=== PATIENT | male | born 1990 | race Caucasian/White ===

== ENCOUNTER 2018-02-19 09:38 | Outpatient (CLI) | payer MEDICARE, MEDICAID, SELFPAY ==
[2018-02-19 10:28] LABS: HCT 49.4 % (40.0-50.0); Mean Corp. HGB Concentration 32.4 g/dL (32.0-36.0); Mean Corpuscular Hemoglobin 29.4 pg (27.0-33.0); Mean Corpuscular Volume 90.6 fL (80-95); Mean Platelet Volume 9.9 fL (8.0-11.0); Platelet Count 221 x1000/uL (130-400); RBC 5.45 m/cumm (4.50-6.00); RBC Distribution Width 13.3 % (11.8-14.1); White Blood Cell Count 4.66 k/cumm (4.4-10.8)
[2018-02-19 11:05] LABS: ALT 69 U/L (12-78); AST 32 U/L (15-37)
[2018-02-19 11:06] LABS: Cholesterol 133 mg/dL (50-200); Triglyceride 106 mg/dL (30-150)
== END 2018-02-19 09:58 ==
PROVIDERS: PCP Family Medicine; Visit Provider Dermatology
DX: L70.1 Acne conglobata (principal); Z79.899 Other long term (current) drug therapy
CPT/HCPCS: 36415; 85027; 82465; 84450; 84460; 84478

== ENCOUNTER 2019-04-01 08:41 | Outpatient (CLI) | payer MEDICARE, MEDICAID, SELFPAY ==
[2019-04-01 09:11] LABS: HGB 16.1 g/dL (13.5-17.5); Mean Corp. HGB Concentration 32.2 g/dL (32.0-36.0); Mean Corpuscular Hemoglobin 28.9 pg (27.0-33.0); Mean Corpuscular Volume 89.6 fL (80-95); Mean Platelet Volume 9.5 fL (8.0-11.0); Platelet Count 239 x1000/uL (130-400); RBC 5.58 m/cumm (4.50-6.00); RBC Distribution Width 13.5 % (11.8-14.1)
[2019-04-01 10:15] LABS: Anion Gap 6.5 mmol/L (3-11); BUN 14 mg/dL (7-18); CO2 31.5 mmol/L (21.0-32.0); CREATININE 1.01 mg/dL (0.70-1.30); Calcium 9.2 mg/dL (8.5-10.1); Chloride 108 mmol/L (98-107); Glucose 84 mg/dL (70-100); Potassium 4.4 mmol/L (3.5-5.1); Sodium 146 mmol/L (136-145)
[2019-04-01 10:20] LABS: Hemoglobin A1C 5.7 % (4.5-6.2)
== END 2019-04-01 09:01 ==
PROVIDERS: PCP Family Medicine; Visit Provider Psychiatry & Neurology Child & Adolescent Psychiatry
DX: F79 Unspecified intellectual disabilities (principal); I10 Essential (primary) hypertension; Z79.899 Other long term (current) drug therapy
CPT/HCPCS: 36415; 80048; 85027; 83036

== ENCOUNTER 2021-03-13 10:47 | Outpatient (CLI) | payer MEDICARE, MEDICAID, SELFPAY ==
[2021-03-13 12:45] LABS: Anion Gap 5.7 mmol/L (3-11); BUN 14 mg/dL (7-18); CO2 34.3 mmol/L (21.0-32.0); CREATININE 0.9 mg/dL (0.70-1.30); Calcium 9.3 mg/dL (8.5-10.1); Calculated LDL 59 mg/dL (<100); Chloride 105 mmol/L (98-107); Cholesterol 118 mg/dL (<200); Glucose 59 mg/dL (74-106); HDL Cholesterol 49 mg/dL (40-60); Potassium 4.1 mmol/L (3.5-5.1); Sodium 145 mmol/L (136-145); Triglyceride 51 mg/dL (<150)
[2021-03-13 13:02] LABS: Hemoglobin A1C 5.3 % (<5.7)
== END 2021-03-13 10:48 | disposition home or self-care (01) ==
LOC: LOS 10:48
PROVIDERS: PCP Nurse Practitioner; Visit Provider Nurse Practitioner
DX: E78.5 Hyperlipidemia, unspecified (principal); R73.03 Prediabetes; R63.1 Polydipsia
CPT/HCPCS: 36415; 80048; 80061; 83036

== ENCOUNTER → 2023-03-26 09:07 | Outpatient (BNVA) | payer MEDICARE, MEDICAID, SELFPAY | PROVIDERS: PCP Nurse Practitioner Family; Referring Provider Nurse Practitioner Family; Visit Provider Podiatrist | DX: B35.1 Tinea unguium (principal); L60.3 Nail dystrophy; M79.674 Pain in right toe(s); M79.675 Pain in left toe(s) | CPT/HCPCS: 11721 ==

== ENCOUNTER 2023-04-30 13:54 | Outpatient (REF) | payer MEDICARE, MEDICAID, SELFPAY ==
[2023-04-30 14:35] LABS: ALT 31 U/L (16-63); AST 15 U/L (15-37); Alkaline Phosphatase 101 U/L (46-116); BUN 13 mg/dL (7-18); CREATININE 0.9 mg/dL (0.70-1.30); Calcium 9.3 mg/dL (8.5-10.1); Calculated LDL 60 mg/dL (<100); Chloride 105 mmol/L (98-107); Cholesterol 117 mg/dL (<200); Glucose 74 mg/dL (74-106); HDL Cholesterol 50 mg/dL (40-60); Potassium 3.9 mmol/L (3.5-5.1); Sodium 144 mmol/L (136-145); Total Protein 7.3 g/dL (6.4-8.2); Triglyceride 35 mg/dL (<150)
== END 2023-04-30 13:55 | disposition home or self-care (01) ==
LOC: LBN 13:54
PROVIDERS: PCP Nurse Practitioner Family; Visit Provider Nurse Practitioner Family
DX: E78.5 Hyperlipidemia, unspecified (principal)
CPT/HCPCS: 80053; 80061

== ENCOUNTER → 2023-12-11 13:06 | Outpatient (BNVA) | payer MEDICARE, MEDICAID, SELFPAY | PROVIDERS: PCP Nurse Practitioner Family; Referring Provider Nurse Practitioner Family; Visit Provider Podiatrist | DX: L60.0 Ingrowing nail (principal); M79.671 Pain in right foot | CPT/HCPCS: 11750 ==

== ENCOUNTER → 2023-12-29 13:25 | Outpatient (BNVA) | payer MEDICARE, MEDICAID, SELFPAY | PROVIDERS: PCP Nurse Practitioner Family; Referring Provider Nurse Practitioner Family; Visit Provider Podiatrist | DX: L60.0 Ingrowing nail (principal); M79.671 Pain in right foot | CPT/HCPCS: 99213 ==

== ENCOUNTER 2024-10-05 02:45 | Outpatient (CLI) | payer MEDICARE, MEDICAID, SELFPAY ==
[2024-10-05 10:37] LABS: ALT 53 U/L (16-63); AST 29 U/L (15-37); Albumin 3.8 g/dL (3.4-5.0); Alkaline Phosphatase 113 U/L (46-116); Anion Gap 5.1 mmol/L (3-11); BUN 15 mg/dL (7-18); Bilirubin, Total 0.8 mg/dL (0.2-1.0); CO2 30.9 mmol/L (21.0-32.0); CREATININE 0.9 mg/dL (0.70-1.30); Calcium 9.1 mg/dL (8.5-10.1); Calculated LDL 57 mg/dL (<100); Chloride 105 mmol/L (98-107); Cholesterol 109 mg/dL (<200); Estimated GFR 115.65 (mL/min/1.73m2); Glucose 83 mg/dL (74-106); HDL Cholesterol 44 mg/dL (>or=40); Potassium 3.9 mmol/L (3.5-5.1); Sodium 141 mmol/L (136-145); Total Protein 7.5 g/dL (6.4-8.2); Triglyceride 44 mg/dL (<150)
== END 2024-10-05 02:46 | disposition home or self-care (01) ==
LOC: LBO 02:45
PROVIDERS: PCP Nurse Practitioner Family; Visit Provider Nurse Practitioner Family
DX: E78.5 Hyperlipidemia, unspecified (principal)
CPT/HCPCS: 36415; 80053; 80061